=== PATIENT | female | born 1990 | race American Indian/Alaskan Native ===

== ENCOUNTER 2020-03-27 22:06 | Emergency (ER) | payer MEDICAID ==
[2020-03-28 00:25] VITALS: BP 186/102
== END 2020-03-28 00:30 | disposition left against medical advice (07) ==
LOC: ED 22:06
DX: R07.9 Chest pain, unspecified (principal); Z53.21 Procedure and treatment not carried out due to patient leaving prior to being seen by health care provider
CPT/HCPCS: 93005